=== PATIENT | male | born 2000 | race Caucasian/White ===

== ENCOUNTER 2022-04-12 08:24 | Emergency (ER) | payer OTHER ==
[2022-04-12 10:08] LABS: Basophils % (Auto) 0.4 % (0.0-1.8); Eosinophils # (Auto) 0.1 K/mm3 (0.0-0.4); Hematocrit 44.7 % (35.5-45.6); Hemoglobin 14.6 gm/dl (11.8-15.2); Lymphocytes # (Auto) 1.5 K/mm3 (1.2-5.4); Lymphocytes % (Auto) 15.8 % (13.4-35.0); Mean Corpuscular HGB Conc 33 % (32-34); Mean Corpuscular Volume 87 fl (84-94); Monocytes # (Auto) 0.6 K/mm3 (0.0-0.8); Monocytes % (Auto) 6.1 % (0.0-7.3); Platelet Count 214 K/mm3 (140-440); Red Blood Count 5.15 M/mm3 (3.65-5.03); Red Cell Distribution Width 12.7 % (13.2-15.2)
[2022-04-12 10:18] LABS: BUN/Creatinine Ratio 24; Blood Urea Nitrogen 26 mg/dL (9-20); Calcium 9.5 mg/dL (8.4-10.2); Hemolysis Index 8
--- NOTE | 2022-04-12 16:22 | Emergency Department Report ---
ED General Adult HPI - General Chief complaint: GI Bleed Stated complaint: VOMITING BLACK/BLACK LIQUID STOOL PUI?: No Time Seen by Provider: 04/12/22 16:20 Source: patient Mode of arrival: Ambulatory Limitations: No Limitations - History of Present Illness Initial comments: Patient is a 21-year-old male that comes to the emergency room complaining of bloody stools this morning. He denies abdominal pain. He is ambulatory, non toxic [id number] on exam. He is here with his mother. He has no medical history. Takes no medications. Denies alcohol cigarettes and drugs. Patient denies having any pain. He has no fever or chills. He has no back pain. He denies constipation. -: Sudden, hour(s) Worsens with: none Associated Symptoms: denies other symptoms Treatments Prior to Arrival: none - Related Data Allergies Allergy/AdvReac Type Severity Reaction Status Date / Time No Known Allergies Allergy Verified 04/12/22 09:14 ED Review of Systems ROS: Stated complaint: VOMITING BLACK/BLACK LIQUID STOOL Other details as noted in HPI Comment: All other systems reviewed and negative ED Past Medical Hx - Past Medical History Previous Medical History?: No - Surgical History Past Surgical History?: No - Family History Family history: no significant - Social History Smoking Status: Never Smoker Substance Use Type: Alcohol ED Physical Exam - General Limitations: No Limitations General appearance: alert, in no apparent distress - Head Head exam: Present: atraumatic, normocephalic - Eye Eye exam: Present: normal appearance - ENT ENT exam: Present: mucous membranes moist - Neck Neck exam: Present: normal inspection - Respiratory Respiratory exam: Present: normal lung sounds bilaterally. Absent: respiratory distress - Cardiovascular Cardiovascular Exam: Present: regular rate, normal rhythm. Absent: systolic murmur, diastolic murmur, rubs, gallop - GI/Abdominal GI/Abdominal exam: Present: soft, normal bowel sounds - Rectal Rectal exam: Present: deferred - Extremities Exam Extremities exam: Present: normal inspection - Back Exam Back exam: Present: normal inspection - Neurological Exam Neurological exam: Present: alert, oriented X3 - Psychiatric Psychiatric exam: Present: normal affect, normal mood - Skin Skin exam: Present: warm, dry, intact, normal color. Absent: rash ED Course Vital Signs 04/12/22 09:14 Temperature 97.3 F L Pulse Rate 115 H Respiratory 16 Rate Blood Pressure 114/71 [Left] O2 Sat by Pulse 98 Oximetry ED Medical Decision Making - Lab Data Result diagrams: 04/12/22 09:31 04/12/22 09:31 - Medical Decision Making Labs 04/12/22 04/12/22 04/12/22 09:31 09:31 09:41 WBC 9.4 RBC 5.15 H Hgb 14.6 Hct 44.7 MCV 87 MCH 28 MCHC 33 RDW 12.7 L Plt Count 214 Lymph % (Auto) 15.8 [place] % (Auto) 6.1 Eos % (Auto) 1.0 Baso % (Auto) 0.4 Lymph # (Auto) 1.5 [place] # (Auto) 0.6 Eos # (Auto) 0.1 Baso # (Auto) 0.0 Seg Neutrophils % 76.7 H Seg Neutrophils # 7.2 Sodium 140 Potassium 4.1 Chloride 103.0 Carbon Dioxide 28 Anion Gap 13 BUN 26 H Creatinine 1.1 Estimated GFR > 60 BUN/Creatinine Ratio 24 Glucose 91 Calcium 9.5 Blood Type B POSITIVE Antibody Screen Negative Vital Signs 04/12/22 09:14 Temperature 97.3 F L Pulse Rate 115 H Respiratory 16 Rate Blood Pressure 114/71 [Left] O2 Sat by Pulse 98 Oximetry Vital signs are normal. Blood counts noted. Exam is within normal limits. No abdominal pain. 88 on provider exam. On discharge exam patient continues to have no pain or other complaints. He has been here over 8 hours. Has had no bloody stools. Patient ambulatory, nontoxic [id number]. He is taking p.o. Mother and patient educated on discharge plan of care. Both verbalized understanding of diet, activity, medications and follow-up. - Differential Diagnosis ro gib Critical care attestation.: If time is entered above; I have spent that time in minutes in the direct care of this critically ill patient, excluding procedure time. ED Disposition Clinical Impression: Dark stools Disposition: 01 HOME / SELF CARE / HOMELESS Is pt being admited?: No Does the pt Need Aspirin: No Condition: Stable Additional Instructions: FOLLOW UP WITH PCP IN ONE WEEK FOR RECHECK TAKE THIS WITH YOU - HE CAN COMPARE LAB VALUES DIET AND ACTIVITY TOLERATED STAY WELL HYDRATED Referrals: BOUBACAR CANALES MD [Staff Physician] - 3-5 Days Forms: Accompanied Note, Work/School Release Form(ED) Time of Disposition: 16:21
[2022-04-12 17:51] VITALS: BP 128/78
== END 2022-04-12 17:44 | disposition home or self-care (01) ==
LOC: ED 08:24
DX: K92.1 Melena (principal); F10.20 Alcohol dependence, uncomplicated
CPT/HCPCS: 36415; 80048; 85025; 86850; 86900; 86901; 99283